=== PATIENT | female | born 1965 | race Caucasian/White ===

== ENCOUNTER 2018-04-29 06:50 | Day surgery (SDC) | payer BC ==
[~2018-04-29] VITALS: Ht 152.4 cm; Wt 116.7 kg
[~2018-04-29 06:50] MED LIST: BUPIVACAINE/PF-EPI 0.25% 1:200K ONE; NEOMY/POLYMYXIN B GU IRR. 1 ML IRRIG ONE
[2018-04-29 07:34] VITALS: BP 163/102
[2018-04-29] MEDS ORDERED: LACTATED RINGERS 1,000 ML IV SCH (07:39)
[2018-04-29] MEDS ORDERED: NONE PER PT (07:39)
[2018-04-29 07:45] LABS: HCG UR SG 1.022 (1.003-1.030)
[2018-04-29 07:57] VITALS: BP 138/88
[2018-04-29] MEDS ORDERED: LIDOCAINE-MPF 1%, 2ML INFIL ONE (08:00)
[2018-04-29] MEDS ORDERED: METOCLOPRAMIDE 5 MG/ML, 2ML ONE (09:30)
[2018-04-29] MEDS ORDERED: CEFAZOLIN 1,000 MG ONE (09:30)
[2018-04-29] MEDS ORDERED: PROPOFOL 10 MG/ML, 20ML ONE (09:30)
[2018-04-29] MEDS ORDERED: FENTANYL PF 100 MCG/2ML ONE ×2 (09:30→11:59)
[2018-04-29] MEDS ORDERED: MIDAZOLAM 1 MG/ML, 2ML ONE (09:30)
[2018-04-29] MEDS ORDERED: ONDANSETRON 2MG/ML, 2ML ONE (09:30)
[2018-04-29] MEDS ORDERED: DEXAMETHASONE 4 MG/ML, 1ML ONE (09:30)
[2018-04-29] MEDS ORDERED: ONDANSETRON 2MG/ML, 2ML IVPush PRN (11:30)
[2018-04-29] MEDS ORDERED: HYDROmorphone 1 MG/ML, 1ML IV PRN (11:30)
[2018-04-29] MEDS ORDERED: MEPERIDINE/PF 25MG/0.5ML IVPush PRN (11:30)
[2018-04-29] MEDS ORDERED: LABETALOL 5MG/ML, 20ML IV PRN (11:30)
[2018-04-29] MEDS ORDERED: FENTANYL PF 100 MCG/2ML IV PRN (11:30)
[2018-04-29] MEDS ORDERED: MIDAZOLAM 1 MG/ML, 2ML IV PRN (11:30)
[2018-04-29] MEDS ORDERED: ACETAMINOPHEN 650 MG/20.3 ML UDC ONE (11:39)
[2018-04-29] MEDS ORDERED: OXYcodone 5 MG/5 ML ORAL.SOL UDC ONE ×2 (11:39→11:59)
[2018-04-29] MEDS: OXYcodone 5 MG/5 ML ORAL.SOL UDC PO PRN ×2 (11:42→12:00)
[2018-04-29] MEDS ORDERED: LABETALOL 5MG/ML, 20ML ONE (12:28)
== END 2018-04-29 18:50 | disposition home or self-care (01) ==
LOC: OUT 06:50
PROVIDERS: ATTEND Obstetrics & Gynecology Female Pelvic Medicine and Reconstructive Surgery
DX: C54.1 Malignant neoplasm of endometrium (principal); N92.1 Excessive and frequent menstruation with irregular cycle; N85.00 Endometrial hyperplasia, unspecified; N81.89 Other female genital prolapse; N39.46 Mixed incontinence; I10 Essential (primary) hypertension; Z98.890 Other specified postprocedural states; Z79.899 Other long term (current) drug therapy
CPT/HCPCS: 57265; 57288; 58552; 81025; 88307; C1771; J0690; J1100; J2250; J2405; J2704; J2765; J3010; J3490; J7120